=== PATIENT | male | born 1940 | race Caucasian/White ===

== ENCOUNTER → 2022-02-10 | Outpatient (CLI) | payer MEDICARE | LOC: M PLARAD 11:58 | PROVIDERS: ATTEND Neuromusculoskeletal Medicine & OMM | DX: R19.09 Other intra-abdominal and pelvic swelling, mass and lump (principal); R93.89 Abnormal findings on diagnostic imaging of other specified body structures; R91.8 Other nonspecific abnormal finding of lung field | CPT/HCPCS: 78815; A9552 ==

== ENCOUNTER 2024-08-05 13:34 | Observation (INO) | payer MEDICARE ==
[~2024-08-05] VITALS: Ht 172.7 cm; Wt 108.4 kg
[2024-08-05] MEDS ORDERED: IPRATROPIUM 0.5MG/ALBUTEROL 2.5MG INH SOL UD 3ML (DUONEB) NEB PRN (14:20)
[2024-08-05 14:42] LABS: BASO # 0.1 10^3/uL (0.0-0.2); BASO % 0.5 % (0.0-1.0); EOS # 0.2 10^3/uL (0.0-0.5); EOS % 1.5 % (0.0-3.0); HEMATOCRIT 48.6 % (42.0-52.0); HEMOGLOBIN 16.7 g/dl (13.5-17.5); LYMPH # 1.8 10^3/uL (1.5-5.0); LYMPH % 15.4 % (24.0-44.0); MEAN CORPUSCULAR HEMOGLOBIN 30.7 pg (27.0-33.0); MEAN CORPUSCULAR HGB CONC 34.4 g/dl (32.0-36.5); MEAN CORPUSCULAR VOLUME 89.3 fl (80.0-96.0); MONO # 0.7 10^3/uL (0.0-0.8); MONO % 6.2 % (2.0-8.0); NEUTROPHILS % 75.5 % (36.0-66.0); PLATELET COUNT, AUTOMATED 202 10^3/uL (150-450); RED BLOOD COUNT 5.44 10^6/uL (4.30-6.10); WHITE BLOOD COUNT 11.9 10^3/uL (4.0-10.0)
[2024-08-05 15:07] LABS: ALBUMIN 3.4 G/DL (3.2-5.2); ALKALINE PHOSPHATASE 53 U/L (40-129); ALT/SGPT 48 U/L (7.0-40); AST/SGOT 58 U/L (<34); BILIRUBIN,DIRECT < 0.1 MG/DL (<0.4); BILIRUBIN,TOTAL 0.4 MG/DL (0.3-1.2); BLOOD UREA NITROGEN 17 MG/DL (9-23); CALCIUM LEVEL 9.8 MG/DL (8.3-10.6); CARBON DIOXIDE LEVEL 29 MMOL/L (20-31); CHLORIDE LEVEL 98 MMOL/L (98-107); GLOMERULAR FILTRATION RATE > 60.0 (>35); GLUCOSE, FASTING 147 MG/DL (74-106); POTASSIUM SERUM 4.9 MMOL/L (3.5-5.1); SODIUM LEVEL 133 MMOL/L (136-145); TOTAL PROTEIN 6.9 G/DL (5.7-8.2)
[2024-08-05 15:36] LABS: VENOUS BASE EXCESS 0.3 (-2.0-2.0); VENOUS HCO3 27.5 MMOL/L (23.0-27.0); VENOUS O2 SATURATION 51.8 % (60.0-80.0); VENOUS PARTIAL PRESSURE CO2 53.2 mmHg (38.0-50.0); VENOUS PH 7.332 UNITS (7.330-7.430); VENOUS STANDARD HCO3 23.4 MMOL/L; VENOUS TOTAL CO2 29.2 MMOL/L (24.0-28.0)
[2024-08-05] MEDS: dexAMETHasone 20MG/5ML VIAL IV ONE (17:27)
[2024-08-05] MEDS: FAMOTIDINE 20MG/2ML VIAL IVP ONE (18:03)
[2024-08-05] MEDS: ASPIRIN 81MG CHEW TABLET PO ONE (18:03)
[2024-08-05 18:11] LABS: CK-MB VALUE MASS 15.2 NG/ML (<3.6)
[2024-08-05 18:31] LABS: CPK CREATINE PHOSPHOKINASE 1790 U/L (46-171); MB/CK RELATIVE INDEX 0.84 (< OR =4)
[2024-08-05 18:45] LABS: CK-MB VALUE MASS 18.6 NG/ML (<3.6)
[2024-08-05] MEDS: GASTROGRAFIN SOLUTION 30ML PO SCH (18:47)
[2024-08-05 18:59] LABS: MB/CK RELATIVE INDEX 0.69 (< OR =4)
[2024-08-05] MEDS ORDERED: ISOVUE-370 76% 100ML VIAL As Ordered ONE (19:16)
[2024-08-05] MEDS ORDERED: PRAV80TA2 PO (19:17)
[2024-08-05] MEDS ORDERED: FLUT12HF3 INH (19:17)
[2024-08-05] MEDS ORDERED: LISI5TAB11 PO (19:17)
[2024-08-05] MEDS ORDERED: TAMS1CAP17 PO (19:17)
[2024-08-05] MEDS ORDERED: TRES1INJ SC (19:17)
[2024-08-05] MEDS ORDERED: MUCI600T31 PO (19:17)
[2024-08-05] MEDS ORDERED: LEVO50TA5 PO (19:17)
[2024-08-05] MEDS ORDERED: ASPI81CH33 PO (19:17)
[2024-08-05] MEDS ORDERED: SEMA3TAB4 PO (19:17)
[2024-08-05] MEDS ORDERED: ALBU8.5H INH (19:17)
[2024-08-05] MEDS ORDERED: FINA5TAB2 PO (19:17)
[2024-08-05] MEDS ORDERED: HOME MED LIST COMPLETE! XX SCH (19:20)
[2024-08-05 20:13] LABS: D-DIMER QUANT 1.12 ug/mL (<0.5); INR 0.97; PARTIAL THROMBOPLASTIN TIME 33.6 SECONDS (24.8-34.2); PROTHROMBIN TIME 13.2 SECONDS (12.5-14.5)
[2024-08-05] MEDS: cefTRIAXone SOD 1 GM in DEXTROSE 5% (D5W) ADV/MINI-BAG 50 ML IV ONE (22:41)
[2024-08-05] MEDS: NS (Normal Saline) 0.9% 1,000 ML IV ONE (22:52)
[2024-08-06 01:37] VITALS: BP 109/75; TEMP 97.9; O2SAT 93
[2024-08-06 03:57] VITALS: BP 137/72; TEMP 97.7; O2SAT 94
[2024-08-06] MEDS: ENOXAPARIN 120MG/0.8ML SYRINGE SC ONE (04:01)
[2024-08-06] MEDS ORDERED: GLUCAGON INJ 1MG VIAL SC PRN (04:10)
[2024-08-06] MEDS ORDERED: GLUCOSE 4 GM CHEW PO PRN (04:10)
[2024-08-06] MEDS ORDERED: DEXTROSE 50% 50ML SYRINGE IV PRN (04:10)
[2024-08-06 05:58] LABS: VENOUS BASE EXCESS -2.6 (-2.0-2.0); VENOUS HCO3 22.2 MMOL/L (23.0-27.0); VENOUS O2 SATURATION 98.5 % (60.0-80.0); VENOUS PARTIAL PRESSURE CO2 39.1 mmHg (38.0-50.0); VENOUS PH 7.373 UNITS (7.330-7.430); VENOUS STANDARD HCO3 22.4 MMOL/L; VENOUS TOTAL CO2 23.4 MMOL/L (24.0-28.0)
[2024-08-06 06:05] LABS: HEMATOCRIT 48.2 % (42.0-52.0); HEMOGLOBIN 16.5 g/dl (13.5-17.5); MEAN CORPUSCULAR HEMOGLOBIN 30.3 pg (27.0-33.0); MEAN CORPUSCULAR HGB CONC 34.2 g/dl (32.0-36.5); MEAN CORPUSCULAR VOLUME 88.6 fl (80.0-96.0); PLATELET COUNT, AUTOMATED 205 10^3/uL (150-450); RED BLOOD COUNT 5.44 10^6/uL (4.30-6.10); WHITE BLOOD COUNT 13.6 10^3/uL (4.0-10.0)
[2024-08-06 06:28] LABS: APPEARANCE, URINE CLEAR (CLEAR); BACTERIA, URINE AUTO NEGATIVE (NEGATIVE); BILIRUBIN, URINE AUTO NEGATIVE (NEGATIVE); BLOOD, URINE BLOOD 1+ (NEGATIVE); COLOR, URINE YELLOW (YELLOW); GLUCOSE, URINE (UA) AUTO 1+ mg/dL (NEGATIVE); KETONE, URINE AUTO NEGATIVE (NEGATIVE); LEUKOCYTE ESTERASE, URINE AUTO NEGATIVE (NEGATIVE); NITRITE, URINE AUTO NEGATIVE (NEGATIVE); PROTEIN, URINE AUTO 2+ mg/dL (NEGATIVE); RBC, URINE AUTO 0 /HPF (0-3); SPECIFIC GRAVITY URINE AUTO 1.026 (1.002-1.035); SQUAMOUS EPITHELIAL CELL UR AU 0 /HPF (0-6); UROBILINOGEN, URINE AUTO 0.2 mg/dL (0.0-2.0); WBC, URINE AUTO 2 /HPF (0-3)
[2024-08-06 06:43] LABS: ALBUMIN 2.9 G/DL (3.2-5.2); ALKALINE PHOSPHATASE 50 U/L (40-129); ALT/SGPT 45 U/L (7.0-40); AST/SGOT 71 U/L (<34); BILIRUBIN,TOTAL 0.4 MG/DL (0.3-1.2); BLOOD UREA NITROGEN 19 MG/DL (9-23); CARBON DIOXIDE LEVEL 24 MMOL/L (20-31); CHLORIDE LEVEL 100 MMOL/L (98-107); CREATININE FOR GFR 1.05 MG/DL (0.70-1.30); GLOMERULAR FILTRATION RATE > 60.0 (>35); GLUCOSE, FASTING 266 MG/DL (74-106); MAGNESIUM LEVEL 1.6 MG/DL (1.8-2.4); POTASSIUM SERUM 4.3 MMOL/L (3.5-5.1); SODIUM LEVEL 132 MMOL/L (136-145); TOTAL PROTEIN 6.3 G/DL (5.7-8.2)
[2024-08-06] MEDS: LEVOTHYROXINE 50MCG TABLET (0.05MG) PO SCH (07:16)
[2024-08-06] MEDS: INSULIN LISPRO (NovoLOG) PER UNIT SC SCH ×2 (07:58→21:19)
[2024-08-06] MEDS: ADVAIR HFA 230/21MCG INHALER INH SCH (08:00)
[2024-08-06 08:22] LABS: THYROID STIMULATING HORMONE 30.098 uIU/ML (0.55-4.78)
[2024-08-06] MEDS: PANTOPRAZOLE 40MG TAB (PROTONIX) PO SCH (08:32)
[2024-08-06] MEDS: TAMSULOSIN 0.4 MG CAP PO SCH (08:32)
[2024-08-06] MEDS: FINASTERIDE 5MG TAB PO SCH (08:32)
[2024-08-06] MEDS: lisinopriL 5 MG TAB PO SCH (08:32)
[2024-08-06] MEDS: PRAVASTATIN 20 MG TAB PO SCH (08:32)
[2024-08-06 08:34] LABS: HEPATITIS B SURFACE ANTIGEN NEGATIVE (NEGATIVE)
[2024-08-06] MEDS: MAG SULF 1GM/100ML (MAG RUN) 1 GM in IV 1 EA IV SCH (08:45)
[2024-08-06 08:55] LABS: HEPATITIS B CORE ANTIBODY IGM NEGATIVE (NEGATIVE); HEPATITIS C VIRUS ABY INDEX < 0.02 INDEX (<0.8)
[2024-08-06] MEDS ORDERED: predniSONE 20 MG TAB PO SCH (09:00)
[2024-08-06] MEDS ORDERED: ENOXAPARIN 40MG/0.4ML SYRINGE (J1650 PER 10MG) SC SCH (09:00)
[2024-08-06] MEDS ORDERED: IPRATROPIUM 0.5MG/ALBUTEROL 2.5MG INH SOL UD 3ML (DUONEB) NEB PRN (10:20)
[2024-08-06 12:03] VITALS: BP 153/73; TEMP 97.7; O2SAT 92
[2024-08-06] MEDS: IPRATROPIUM 0.5MG/ALBUTEROL 2.5MG INH SOL UD 3ML (DUONEB) NEB SCH (13:41)
[2024-08-06 14:13] VITALS: O2SAT 92
[2024-08-06] MEDS: ENOXAPARIN 120MG/0.8ML SYRINGE SC SCH (17:06)
[2024-08-06 20:44] VITALS: BP 131/57; TEMP 97.9; O2SAT 93
[2024-08-06] MEDS: SENOKOT S TAB PO SCH (21:19)
[2024-08-07 04:06] VITALS: BP 112/44; TEMP 97.5; O2SAT 92
[2024-08-07] MEDS: FUROSEMIDE 20MG/2ML VIAL IV ONE (08:03)
[2024-08-07 08:04] VITALS: BP 145/63
[2024-08-07 08:05] LABS: BASO # 0.1 10^3/uL (0.0-0.2); BASO % 0.5 % (0.0-1.0); EOS # 0.1 10^3/uL (0.0-0.5); EOS % 0.9 % (0.0-3.0); HEMATOCRIT 45.2 % (42.0-52.0); HEMOGLOBIN 15.8 g/dl (13.5-17.5); LYMPH # 2.3 10^3/uL (1.5-5.0); LYMPH % 18.9 % (24.0-44.0); MEAN CORPUSCULAR HEMOGLOBIN 30.9 pg (27.0-33.0); MEAN CORPUSCULAR VOLUME 88.5 fl (80.0-96.0); MONO # 0.9 10^3/uL (0.0-0.8); MONO % 7.4 % (2.0-8.0); NEUTROPHILS # 8.7 10^3/uL (1.5-8.5); NEUTROPHILS % 71.5 % (36.0-66.0); PLATELET COUNT, AUTOMATED 204 10^3/uL (150-450); RED BLOOD COUNT 5.11 10^6/uL (4.30-6.10); WHITE BLOOD COUNT 12.1 10^3/uL (4.0-10.0)
[2024-08-07 08:49] LABS: ALBUMIN 3.3 G/DL (3.2-5.2); BILIRUBIN,TOTAL 0.4 MG/DL (0.3-1.2); CALCIUM LEVEL 8.7 MG/DL (8.3-10.6); CREATININE FOR GFR 1.3 MG/DL (0.70-1.30); GLOMERULAR FILTRATION RATE 56.1 (>35); POTASSIUM SERUM 4.4 MMOL/L (3.5-5.1); TOTAL PROTEIN 6.3 G/DL (5.7-8.2)
[2024-08-07 08:52] LABS: FREE T4 0.22 NG/DL (0.89-1.76)
[2024-08-07] MEDS ORDERED: ANOR1AER PO (09:59)
[2024-08-07] MEDS ORDERED: LEVO100T5 PO (09:59)
[2024-08-07 10:00] VITALS: O2SAT 94
[2024-08-07 10:03] VITALS: O2SAT 87
[2024-08-07] MEDS ORDERED: NICO1PAT36 TOP (10:03)
[2024-08-07 10:05] VITALS: O2SAT 92
[2024-08-07] MEDS ORDERED: IPRA0.00 NEB (10:15)
[2024-08-07] MEDS ORDERED: PROT1TAB2 PO (10:21)
[2024-08-07 12:01] VITALS: BP 144/63; TEMP 97.7; O2SAT 94
[2024-08-07] MEDS ORDERED: TIOT18INH INH (12:21)
[2024-08-07 12:53] LABS: HEMOGLOBIN A1c 10.4 % (4.0-6.0)
[2024-08-08] MEDS ORDERED: ENOXAPARIN 40MG/0.4ML SYRINGE (J1650 PER 10MG) SC SCH (09:00)
== END 2024-08-07 13:50 | disposition home or self-care (01) ==
LOC: M ED 13:34 → M ED INP 13:35 → M MSPAV 08-06 01:37
PROVIDERS: ADMIT Family Medicine; ATTEND Internal Medicine
DX: R09.02 Hypoxemia (principal); R06.00 Dyspnea, unspecified; R41.82 Altered mental status, unspecified; R79.1 Abnormal coagulation profile; E03.9 Hypothyroidism, unspecified; R91.1 Solitary pulmonary nodule; I27.20 Pulmonary hypertension, unspecified; K20.90 Esophagitis, unspecified without bleeding; R10.30 Lower abdominal pain, unspecified; I10 Essential (primary) hypertension; E78.5 Hyperlipidemia, unspecified; K21.9 Gastro-esophageal reflux disease without esophagitis; E11.9 Type 2 diabetes mellitus without complications; Z90.49 Acquired absence of other specified parts of digestive tract; Z90.89 Acquired absence of other organs; Z87.891 Personal history of nicotine dependence; Z79.899 Other long term (current) drug therapy; Z79.82 Long term (current) use of aspirin; Z79.4 Long term (current) use of insulin; Z79.890 Hormone replacement therapy
CPT/HCPCS: 36415; 70450; 71045; 71250; 71275; 74177; 76705; 80048; 80053; 80074; 80076; 81001; 82550; 82553; 82803; 83036; 83735; 83880; 84439; 84443; 84484; 85025; 85027; 85379; 85610; 85730; 87486; 87581; 87633; 87798; 93005; 93041; 93306; 94640; 94760; 96372; 96374; 96375; 99285; G0378; J0696; J1100; J1650; J1815; J1940; J3475; Q9963; Q9967

== ENCOUNTER → 2024-09-22 | Outpatient (REF) | payer MEDICARE ==
[~2024-09-22] MED LIST: ALBU8.5H INH; ANOR1AER PO; ASPI81CH33 PO; FINA5TAB2 PO; FLUT12HF3 INH; IPRA0.00 NEB; LEVO100T5 PO; LEVO50TA5 PO; LISI5TAB11 PO; MUCI600T31 PO; NICO1PAT36 TOP; PRAV80TA2 PO; PROT1TAB2 PO; SEMA3TAB4 PO; TAMS1CAP17 PO; TIOT18INH INH; TRES1INJ SC
== END ==
LOC: M LAB REF 17:33
PROVIDERS: ATTEND Internal Medicine Pulmonary Disease
DX: J43.1 Panlobular emphysema (principal)

== ENCOUNTER → 2024-10-13 | Outpatient (CLI) | payer MEDICARE | LOC: M SLEEP 20:00 | PROVIDERS: ATTEND Internal Medicine Pulmonary Disease | DX: R06.83 Snoring (principal); G47.61 Periodic limb movement disorder ==

== ENCOUNTER → 2024-11-11 | Outpatient (CLI) | payer MEDICARE | LOC: M LAB 09:59 | PROVIDERS: ATTEND Internal Medicine Cardiovascular Disease | DX: I49.40 Unspecified premature depolarization (principal) ==